=== PATIENT | female | born 1970 | race Caucasian/White ===

== ENCOUNTER 2019-09-04 06:54 | Day surgery (SDC) | payer BC, OTHER ==
[~2019-09-04 06:54] MED LIST: LACTATED RINGERS 1,000 ML IV SCH; LIDOCAINE 1% 20 ML VIAL (10MG/ML) FOR IV START INTRADERMA PRN
[2019-09-04 07:14] VITALS: TEMP 98.7
[2019-09-04] MEDS ORDERED: LACTATED RINGERS 1,000 ML IV ONE ×2 (07:16)
[2019-09-04] MEDS ORDERED: PROPOFOL 10 MG/ML 20 ML VIAL IV ONE (07:20)
--- NOTE | 2019-09-04 08:01 | P.PCN ---
Date of Procedure: 09/04/19 Procedure(s) Performed: BRIEF HISTORY: Patient is a 48-year-old pleasant centimeters scheduled for an elective colonoscopy as a part of screening for colorectal neoplasia. Her mother and maternal aunt were both diagnosed with colon cancer in her 60s and 70s respectively. PROCEDURE PERFORMED: Colonoscopy. PREOPERATIVE DIAGNOSIS: Screening for colon cancer/family history of colon cancer. IV sedation per Anesthesia. PROCEDURE: After informed consent was obtained, the patient, was brought into the endoscopy unit. IV sedation was administered by Anesthesia under continuous monitoring. Digital rectal examination was normal. Initially the Olympus CF-160 flexible video colonoscope was then inserted in the rectum, gradually advanced into the cecum without any difficulty. Careful examination was performed as the scope was gradually being withdrawn. Ileocecal valve and the appendiceal orifice were visualized and appeared normal. Prep was excellent. Mucosa of the cecum, ascending colon, transverse colon, descending colon, sigmoid colon, and rectum appeared normal. Retroflexion was performed in the rectum and no lesions were seen. The patient tolerated the procedure well. IMPRESSION: Normal-appearing colon from rectum to cecum with no evidence of colorectal neoplasia. RECOMMENDATIONS: Findings of this examination were discussed with the patient as well as a family. She was advised to have a repeat screening colonoscopy in 5 years because of the family history of colon cancer.
[2019-09-04 08:13] VITALS: BP 121/83; PULSE 85; RESP 16
== END 2019-09-04 08:37 | disposition home or self-care (01) ==
LOC: ORWHC2ENDO 06:54
PROVIDERS: ATTEND Internal Medicine Gastroenterology
DX: Z12.11 Encounter for screening for malignant neoplasm of colon (principal); Z80.0 Family history of malignant neoplasm of digestive organs; G43.909 Migraine, unspecified, not intractable, without status migrainosus; Z98.890 Other specified postprocedural states; Z88.2 Allergy status to sulfonamides; Z88.5 Allergy status to narcotic agent; Z79.899 Other long term (current) drug therapy; Z90.89 Acquired absence of other organs
CPT/HCPCS: 81025; J2704; G0105; 45378

== ENCOUNTER → 2020-08-10 | Day surgery (SDC) | payer BC ==
[2020-08-10 12:26] VITALS: RESP 16; TEMP 98.3
[2020-08-10 14:07] VITALS: BP 140/92; PULSE 88
--- NOTE | 2020-08-10 15:04 | USB ---
EXAMINATION TYPE: US breast aspiration single RT Post biopsy digital diagnostic right breast mammogram DATE OF EXAM: 08/10/2020 CLINICAL HISTORY: 49-year-old female R92.8 Abnormal mammo. TECHNIQUE: Ultrasound guided right breast cyst aspiration and clip placement COMPARISON: 07/30/2020, 07/21/2020, 04/26/2012 FINDINGS: The patient's outside imaging is reviewed. Patient's mammogram shows a new mass occurring within the posterior upper-outer quadrant of the right breast. Today's ultrasound images show a more benign, cys tic appearance to the finding at the 10:00 position. However, given the new mass on mammogram, the de cision is made to proceed with aspiration and clip placement to ensure that this correlates to the ma mmographic mass. The procedure of ultrasound guided cyst aspiration was explained to the patient. Benefits, alternati ves, and risks were discussed. An informed consent was then obtained. The patient was placed in supine positioning for imaging and for the procedure. The overlying skin w as prepped and draped in usual sterile fashion. Lidocaine was used as anesthetic into the skin and s ubcutaneous tissue up to area of concern in the 10:00 right breast. Under ultrasound guidance, an 18-gauge spinal needle is advanced into the cyst and aspiration was abl e to collect approximately 0.2 mL clear pinkish fluid which is sent for laboratory analysis. The lesi on collapsed completely. Following this, a biopsy clip was left at the site of aspiration. The patient tolerated the procedure well without any immediate complication. The patient was kept in the radiology department for short stay after the procedure and then discharged home in stable condi tion. Postbiopsy mammogram shows the previous upper outer quadrant mass to have resolved and a clip in its place. IMPRESSION: Successful, uncomplicated ultrasound guided right posterior 10:00 cyst aspiration and clip placement which confirms that the patient's new mass on mammogram correlates to this cyst. Cytology/pathology r esults to follow.
== END ==
LOC: RADUSWWP 11:58
PROVIDERS: ATTEND Obstetrics & Gynecology
DX: N60.01 Solitary cyst of right breast (principal)
CPT/HCPCS: 77065; 76942; 19000; A4648; J2001; 88173

== ENCOUNTER → 2021-01-05 | Outpatient (CLI) | payer BC ==
--- NOTE | 2021-01-07 13:33 | MM ---
Reason for exam: follow-up at short interval from prior study. Last mammogram was performed 5 months ago. History: Patient had first child at age 32. Family history of breast cancer in paternal aunt. Benign US breast aspiration single RT of the right breast, August 10, 2020. Physical Findings: Nurse did not find any significant physical abnormalities on exam. MG Diagnostic Mammo RT w CAD CC and MLO view(s) were taken of the right breast. Prior study comparison: August 10, 2020, right breast MG diagnostic mammo RT wo CAD. July 21, 2020, mammogram. The breast tissue is heterogeneously dense. This may lower the sensitivity of mammography. Previous mammotome biopsy in the right breast. These results were verbally communicated with the patient and result sheet given to the patient on 01/05/21. ASSESSMENT: Benign, BI-RAD 2 RECOMMENDATION: Routine screening mammogram of both breasts in 6 months. Back on schedule for June 2021.
== END | disposition home or self-care (01) ==
LOC: RADMAMWWP 14:22
PROVIDERS: ATTEND Surgery
DX: R92.2 Inconclusive mammogram (principal); Z80.3 Family history of malignant neoplasm of breast
CPT/HCPCS: 77065

== ENCOUNTER → 2021-11-23 | Outpatient (CLI) | payer OTHER ==
--- NOTE | 2021-11-24 11:38 | MM ---
Reason for exam: screening (asymptomatic). Last mammogram was performed 11 months ago. History: Patient had first child at age 32. Family history of breast cancer in paternal aunt. Benign US breast aspiration single RT of the right breast, August 10, 2020. Physical Findings: A clinical breast exam by your physician is recommended on an annual basis and results should be correlated with mammographic findings. MG Screening Mammo w CAD Bilateral CC and MLO view(s) were taken. Prior study comparison: January 05, 2021, right breast MG diagnostic mammo RT w CAD. August 10, 2020, right breast MG diagnostic mammo RT wo CAD. The breast tissue is heterogeneously dense. This may lower the sensitivity of mammography. There is no discrete abnormality. No significant changes when compared with prior studies. ASSESSMENT: Negative, BI-RAD 1 RECOMMENDATION: Routine screening mammogram of both breasts in 1 year.
== END | disposition home or self-care (01) ==
LOC: RADMAMWWP 08:20
PROVIDERS: ATTEND Obstetrics & Gynecology
DX: Z12.31 Encounter for screening mammogram for malignant neoplasm of breast (principal); Z80.3 Family history of malignant neoplasm of breast
CPT/HCPCS: 77067

== ENCOUNTER → 2022-01-04 | Outpatient (CLI) | payer OTHER ==
--- NOTE | 2022-01-04 19:03 | BD ---
EXAMINATION TYPE: Axial Bone Density DATE OF EXAM: 01/04/2022 COMPARISON: NONE CLINICAL HISTORY: 51 years year old Female. ICD-10 CODE: N95.1 POST MENOPAUSAL Height: 5 FT 9 1/2 IN Weight: 157 FRAX RISK QUESTIONS: Alcohol (3 or more units per day): NO Family History (Parent hip fracture): YES Glucocorticoids (More than 3mos): NO (Ex: prednisone, prednisolone, methylprednisolone, dexamethasone, and hydrocortisone). History of Fracture in Adulthood: YES Secondary Osteoporosis: 1. Type 1 Diabetes: NO 2. Hyperthyroidism: NO 3. Menopause before 45: NO 4. Malnutrition: NO 5. Chronic liver disease: NO Rheumatoid Arthritis: NO Current Tobacco Use: NO RISK FACTORS HISTORY OF: Surgery to Spine/Hip(right/left)/Wrist (right/left): NO Family History of Osteoporosis: NO Active: YES Diet low in dairy products/other sources of calcium: NO Postmenopausal woman: PRADEEP LAST LMP 03/13 If Premenopausal, do you have irregular periods: YES Take estrogen and/or progesterone medications: NO Lost more than 2 inches in height since high school: NO Frequent falls: NO Poor Health: GOOD Hyperparathyroidism: NO Adrenal Insufficiency: NO MEDICATIONS: Additional Medications: ZOLOFT, MAXALT, Additional History: EXAM MEASUREMENTS: Bone mineral densitometry was performed using the [employer] System. Bone mineral density as measured about the Lumbar spine is: ----- L1-L4(G/cm2): 1.283 T Score Values are as follows: ----- L1: -0.6 ----- L2: 1.2 ----- L3: 0.9 ----- L4: 1.5 ----- L1-L4: 0.9 PREV DONE IN OFFICE SETTING Bone mineral density about the R hip (g/cm2): 1.072 Bone mineral density about the L hip (g/cm2): 1.099 T Score values are as follows: -----R Neck: 0.2 -----L Neck: 0.4 -----R Total: 0.9 -----L Total: 0.7 PREV DONE IN OFFICE SETTING FRAX%s: The graph provided illustrates a 1.6 % chance for a major osteoporotic fx and a 0.0 % chance for the hips probability for fx in 10 years time. IMPRESSION: Normal (Values between +1 and -1 indicate normal bone mass). Consider repeating this study in 5 year s or sooner if there is some new clinical indication. NOTE: T-SCORE=SD OF THE YOUNG ADULT MEAN.
== END | disposition home or self-care (01) ==
LOC: RADBDWWP 07:57
PROVIDERS: ATTEND Obstetrics & Gynecology
DX: Z78.0 Asymptomatic menopausal state (principal)
CPT/HCPCS: 77080

== ENCOUNTER → 2023-07-13 | Outpatient (CLI) | payer OTHER ==
--- NOTE | 2023-07-13 13:16 | US ---
EXAMINATION TYPE: US thyroid st tissue head/neck DATE OF EXAM: 07/13/2023 COMPARISON: NONE CLINICAL INDICATION: Female, 52 years old with history of E04.0 GOITER; Doctor felt swelling in neck; Patient denies any signs or symptoms GLAND SIZE: Right Lobe: 5.3 x 1.0 x 1.7 cm Overall Parenchyma: homogeneous Left Lobe: 4.2 x 0.9 x 1.6 cm Overall Parenchyma: homogeneous Isthmus Thickness: 0.2 cm NODULES RIGHT: # of nodules measured on right: 0 LEFT: # of nodules measured on left: 0 ISTHMUS: # of nodules measured in the isthmus: 0 Bilateral neck scanned, no evidence of lymphadenopathy. IMPRESSION: Unremarkable thyroid ultrasound. No discrete nodules.
== END | disposition home or self-care (01) ==
LOC: RADUSWWP 06:59
PROVIDERS: ATTEND Family Medicine
DX: E04.0 Nontoxic diffuse goiter (principal)
CPT/HCPCS: 76536

== ENCOUNTER → 2024-07-19 | Outpatient (CLI) | payer BC ==
--- NOTE | 2024-07-23 19:16 | MM ---
Reason for Exam: Screening (asymptomatic). Last mammogram was performed 1 year(s) and 7 month(s) ago. Patient History: Menarche at age 10. First Full-Term at age 32. Late child-bearing (after 30). Postmenopausal. Patient has history of breast feeding. 08/10/2020, Benign Cyst Aspiration on the right side. Paternal aunt had breast cancer, age 70. Risk Values: Phoebe 5 year model risk: 1.7%. NCI Lifetime model risk: 12.6%. Prior Study Comparison: 01/05/2021 Right Diagnostic Mammogram, [facility]. 11/23/2021 Bilateral Screening Mammogram, [facility]. 11/25/2022 Bilateral MG screening mammo w CAD, [facility]. Tissue Density: The breasts are heterogeneously dense, which may obscure small masses. Findings: Analyzed By CAD. Microclip right breast from prior biopsy. Areas of asymmetric density remain unchanged. There is no suspicious group of microcalcifications or new suspicious mass in either breast. Overall Assessment: Benign, BI-RAD 2 Management: Screening Mammogram of both breasts in 1 year. . Patient should continue monthly self-breast exams. A clinical breast exam by your physician is recommended on an annual basis. This exam should not preclude additional follow-up of suspicious palpable abnormalities. Note on Phoebe scores and lifetime risk: 1. A Phoebe score greater than 3% is considered moderate risk. If this is the case, consider specialist referral to assess eligibility for a risk reducing agent. 2. If overall lifetime risk for the development of breast cancer is 20% or higher, the patient may qualify for future screening with alternating mammogram and breast MRI. [facility], , 07/23/2024 7:14 PM. Electronically signed and approved by: Sintia Sanchez M.D. Radiologist
== END | disposition home or self-care (01) ==
LOC: RADMAMWWP 08:42
PROVIDERS: ATTEND Family Medicine
DX: Z12.31 Encounter for screening mammogram for malignant neoplasm of breast (principal); R92.333 Mammographic heterogeneous density, bilateral breasts; Z78.0 Asymptomatic menopausal state; Z80.3 Family history of malignant neoplasm of breast
CPT/HCPCS: 77067

== ENCOUNTER → 2024-11-01 | Day surgery (SDC) | payer BC ==
[~2024-11-01] MED LIST changes: -LACTATED RINGERS 1,000 ML IV SCH; -LIDOCAINE 1% 20 ML VIAL (10MG/ML) FOR IV START INTRADERMA PRN; +LIDOCAINE 2% (PF) 20 MG/ML 5 ML VIAL ONE; +PROPOFOL 10 MG/ML 20 ML VIAL IV ONE
[2024-11-01] MEDS: IV FLUID CONTINUATION 1,000 ML IV ONE (06:24)
[2024-11-01] MEDS: LACTATED RINGERS 1,000 ML IV SCH (06:26)
[2024-11-01 06:28] VITALS: TEMP 98
--- NOTE | 2024-11-01 07:21 | P.PCN ---
Date of Procedure: 11/01/24 Procedure(s) Performed: BRIEF HISTORY: Patient is a 53-year-old pleasant white female scheduled for an elective colonoscopy as a part of screening for colon cancer and family history of colon cancer. Her mother and maternal aunt were diagnosed with colon cancer at age 50 and 60 respectively PREOPERATIVE DIAGNOSIS: Screening for colon cancer/family history of colon cancer. IV sedation per Anesthesia. PROCEDURE: After informed consent was obtained, the patient, was brought into the endoscopy unit. IV sedation was administered by Anesthesia under continuous monitoring. Digital rectal examination was normal. Initially the Olympus CF-160 flexible video colonoscope was then inserted in the rectum, gradually advanced into the cecum without any difficulty. Careful examination was performed as the scope was gradually being withdrawn. Ileocecal valve and the appendiceal orifice were visualized and appeared normal. Prep was excellent. Mucosa of the cecum, ascending colon, transverse colon, descending colon, sigmoid colon, and rectum appeared normal. Retroflexion was performed in the rectum and no lesions were seen. The patient tolerated the procedure well. IMPRESSION: Normal-appearing colon from rectum to cecum with no evidence of colorectal neoplasia. RECOMMENDATIONS: Findings of this examination were discussed with the patient as well as her family. She was advised to have repeat screening colonoscopy in 5 years because of the strong family history of colon cancer.
[2024-11-01 07:41] VITALS: BP 109/65; PULSE 67; RESP 16
== END ==
LOC: ORWHC2ENDO 05:42
PROVIDERS: ATTEND Internal Medicine Gastroenterology
DX: Z12.11 Encounter for screening for malignant neoplasm of colon (principal); F41.9 Anxiety disorder, unspecified; Z79.899 Other long term (current) drug therapy; Z88.2 Allergy status to sulfonamides; Z80.0 Family history of malignant neoplasm of digestive organs
CPT/HCPCS: 45378; J2704; J2003